=== PATIENT | female | born 1955 | race Caucasian/White ===

== ENCOUNTER 2023-01-23 09:14 | Emergency (ER) | payer MEDICARE ==
[2023-01-23] MEDS ORDERED: Diltiazem 25 MG/5 ML SDV IVPUSH ONE (09:33)
[2023-01-23] MEDS ORDERED: Sodium Chloride 0.9% 10 ML Syringe FLUSH PRN (09:33)
[2023-01-23] MEDS ORDERED: Diltiazem 125 MG in Sodium Chloride 0.9% 125 ML IV SCH (09:45)
[2023-01-23] MEDS ORDERED: Aspirin 81 MG Tab.Chew PO ONE (10:00)
[2023-01-23 10:32] LABS: PTT,PARTIAL THROMBOPLSTIN TIME 28.6 SEC (22.0-34.0)
[2023-01-23 10:46] LABS: ANION GAP 18.5 mEq/L (7-13)
== END 2023-01-23 12:56 ==
LOC: DL.ED 09:14
DX: I48.91 Unspecified atrial fibrillation (principal); I12.0 Hypertensive chronic kidney disease with stage 5 chronic kidney disease or end stage renal disease; N18.6 End stage renal disease; R94.31 Abnormal electrocardiogram [ECG] [EKG]; E78.00 Pure hypercholesterolemia, unspecified; Z99.2 Dependence on renal dialysis; Z79.82 Long term (current) use of aspirin; Z79.899 Other long term (current) drug therapy
CPT/HCPCS: 36415; 71045; 80053; 82947; 83735; 83880; 84443; 84484; 85025; 85610; 85730; 93005; 93010; 99285; A9270-GY; J3490

== ENCOUNTER 2023-03-14 07:32 | Emergency (ER) | payer MEDICARE, OTHER ==
[2023-03-14] MEDS ORDERED: Ondansetron 4 MG/2 ML SDV IVPUSH ONE (07:44)
[2023-03-14 07:45] LABS: ANION GAP 24.7 mEq/L (7-13)
[2023-03-14] MEDS: Sodium Chloride 0.9% 10 ML Syringe FLUSH PRN ×3 (07:49→08:29)
[2023-03-14] MEDS ORDERED: Calcium Chloride 10% 1 GM/10 ML Syringe IVPUSH ONE (08:17)
[2023-03-14] MEDS ORDERED: Albuterol 0.083% 2.5 MG/3 ML Neb Soln NEB ONE (08:18)
[2023-03-14] MEDS ORDERED: Sodium Bicarbonate 8.4% 50 MEQ/50 ML Syringe IVPUSH ONE (08:18)
[2023-03-14] MEDS ORDERED: 50% Dextrose in Water 50 ML Syringe IVPUSH ONE (08:45)
[2023-03-14] MEDS ORDERED: 50% Dextrose in Water 50 ML Syringe IVPUSH PRN (08:46)
[2023-03-14] MEDS ORDERED: Insulin Regular, Human 100 Units/ML 3 ML Vial IV ONE (08:46)
[2023-03-14] MEDS ORDERED: Glucagon,Human Recombinant 1 MG Vial IM PRN (08:46)
[2023-03-14] MEDS ORDERED: Pantoprazole 40 MG Vial IVPUSH ONE (08:47)
[2023-03-14] MEDS ORDERED: Sodium Zirconium Cyclosilicate 10 GM Packet PO ONE (08:47)
[2023-03-14] MEDS ORDERED: Pantoprazole 40 MG in Sodium Chloride 0.9% 100 ML IV SCH (09:00)
== END 2023-03-14 10:40 ==
LOC: DL.ED 07:32
DX: K92.2 Gastrointestinal hemorrhage, unspecified (principal); N17.9 Acute kidney failure, unspecified; E87.5 Hyperkalemia; E78.00 Pure hypercholesterolemia, unspecified; I13.0 Hypertensive heart and chronic kidney disease with heart failure and stage 1 through stage 4 chronic kidney disease, or unspecified chronic kidney disease; N18.9 Chronic kidney disease, unspecified; I50.9 Heart failure, unspecified; Z79.899 Other long term (current) drug therapy; Z79.82 Long term (current) use of aspirin
CPT/HCPCS: 36415; 70450; 71045; 80053; 81001; 82140; 82271; 82272; 83605; 83735; 84484; 85025; 85610; 85730; 86140; 87086; 87088; 87186; 93005; 93010; 96365; 96375; 96376; 99285; 99285-25; A9270-GY; C9113; J1815-GY; J2405; J3490; J7613-GY

== ENCOUNTER 2023-04-22 11:18 | Emergency (ER) | payer MEDICARE, OTHER ==
[2023-04-22] MEDS ORDERED: Sodium Chloride 0.9% 10 ML Syringe FLUSH PRN (11:24)
[2023-04-22] MEDS ORDERED: 50% Dextrose in Water 50 ML Syringe IVPUSH ONE (11:25)
[2023-04-22 11:39] LABS: BASOPHILS PERCENT AUTO 0.1 % (0.0-1.0); HEMATOCRIT 39.4 % (37.0-47.0); HEMOGLOBIN 12.6 g/dL (12.0-16.0); LYMPHOCYTES PERCENT AUTO 4.4 % (20.5-50.1); MEAN CORPUSCULAR HEMOGLOBIN 32.5 pg (27.0-34.0); MEAN CORPUSCULAR VOLUME 101.5 fL (80-100); MONOCYTES PERCENT AUTO 17.4 % (2-8); NEUTROPHILS PERCENT AUTO 78.1 % (42.2-75.2); PLATELET COUNT,PLT 182 10^3/uL (150-450); RED BLOOD CELL COUNT 3.88 10^6/uL (4.2-5.4); WHITE BLOOD CELL COUNT,WBC 7.6 10^3/uL (5.0-10.0)
[2023-04-22 12:11] LABS: A/G RATIO 1.3; ALBUMIN 4.4 g/dL (3.4-5.0); ANION GAP 32.8 mEq/L (7-13); BILIRUBIN TOTAL 0.7 mg/dL (0.2-1.0); BUN/CREATININE RATIO 8.3 (No establ ref range); CALCIUM 9.1 mg/dL (8.5-10.1); EST CRCL DRUG DOSING (CG) 4.32 mL/min; POTASSIUM,K 5.8 mmol/L (3.5-5.1); PROTEIN TOTAL,TP 7.9 g/dL (6.4-8.2)
[2023-04-22 12:12] LABS: CREATININE 8.84 mg/dL (0.55-1.02)
[2023-04-22] MEDS ORDERED: LORazepam 2 MG/ML SDV IVPUSH ONE (13:27)
[2023-04-22] MEDS ORDERED: Thiamine 100 MG in Sodium Chloride 0.9% 100 ML IV ONE (13:28)
[2023-04-22] MEDS ORDERED: Pantoprazole 40 MG Vial IVPUSH ONE (13:28)
[2023-04-22] MEDS ORDERED: Ondansetron 4 MG/2 ML SDV IV ONE (13:28)
[2023-04-22] MEDS ORDERED: Calcium Gluconate 10% 1 GM/10 ML SDV IVPUSH ONE (13:29)
[2023-04-22] MEDS ORDERED: Sodium Polystyrene Sulfonate 15 GM/60 ML Susp 60 ML Bot PO ONE (13:29)
== END 2023-04-22 14:14 ==
LOC: DL.ED 11:18
DX: S01.512A Laceration without foreign body of oral cavity, initial encounter (principal); F10.939 Alcohol use, unspecified with withdrawal, unspecified; E87.5 Hyperkalemia; E16.2 Hypoglycemia, unspecified; I13.2 Hypertensive heart and chronic kidney disease with heart failure and with stage 5 chronic kidney disease, or end stage renal disease; N18.6 End stage renal disease; I50.9 Heart failure, unspecified; E78.00 Pure hypercholesterolemia, unspecified; Z99.2 Dependence on renal dialysis; Z79.82 Long term (current) use of aspirin; Z79.899 Other long term (current) drug therapy
CPT/HCPCS: 36415; 80053; 82947; 85025; 96365; 96375; 99285-25; A9270-GY; C9113; J0612; J2060; J2405; J3411; J3490

== ENCOUNTER 2023-06-17 09:29 | Emergency (ER) | payer MEDICAID, MEDICARE ==
[2023-06-17 09:53] LABS: HEMATOCRIT 30.8 % (37.0-47.0); HEMOGLOBIN 9.7 g/dL (12.0-16.0); MEAN CORPUSCULAR HEMOGLOBIN 31.9 pg (27.0-34.0); MEAN CORPUSCULAR HGB CONC 31.5 g/dL (33.0-35.0); MEAN CORPUSCULAR VOLUME 101.3 fL (80-100); PLATELET COUNT,PLT 333 10^3/uL (150-450); RED BLOOD CELL COUNT 3.04 10^6/uL (4.2-5.4); WHITE BLOOD CELL COUNT,WBC 11.4 10^3/uL (5.0-10.0)
[2023-06-17 10:09] LABS: BASOPHILS PERCENT AUTO 0.7 % (0.0-1.0); EOSINOPHILS PERCENT AUTO 0.4 % (1.0-3.0); LYMPHOCYTES PERCENT AUTO 10.1 % (20.5-50.1); MONOCYTES PERCENT AUTO 6.4 % (2-8); NEUTROPHILS PERCENT AUTO 82.4 % (42.2-75.2)
[2023-06-17 10:13] LABS: LYMPHOCYTES PERCENT MAN 10 % (20-50); MONOCYTES PERCENT MAN 2 % (2-8); NRBC MANUAL 1 /100WBC; SEG NEUTROPHILS PERCENT MAN 88 % (42-75)
[2023-06-17] MEDS: Sodium Chloride 0.9% 10 ML Syringe FLUSH PRN (10:15)
[2023-06-17 10:16] LABS: B-TYPE NATRIURETIC PEPTIDE,BNP > 5000 pg/ml (0-100)
[2023-06-17 10:17] LABS: A/G RATIO 0.8; ALANINE AMINOTRANSFERASE,ALT 17 U/L (14-59); ALBUMIN 3.7 g/dL (3.4-5.0); ALKALINE PHOSPHATASE 128 U/L (46-116); ASPARTATE AMNIOTRANSFERASE,AST 21 U/L (15-37); BILIRUBIN TOTAL 1.2 mg/dL (0.2-1.0); BLOOD UREA NITROGEN,BUN 8 mg/dL (7-18); BUN/CREATININE RATIO 2.9 (No establ ref range); C-REACTIVE PROTEIN 11.8 mg/dL (0.0-0.9); CALCIUM 9.2 mg/dL (8.5-10.1); CARBON DIOXIDE,CO2 28 mmol/L (21-32); CHLORIDE,CL 96 mmol/L (98-107); CREATININE 2.73 mg/dL (0.55-1.02); EST CRCL DRUG DOSING (CG) 14.98 mL/min; GLUCOSE RANDOM 115 mg/dL (70-99); MAGNESIUM 1.6 mg/dL (1.8-2.4); PROTEIN TOTAL,TP 8.2 g/dL (6.4-8.2); SODIUM,NA 137 mmol/L (136-145)
[2023-06-17] MEDS: Carvedilol 25 MG Tab PO ONE (10:17)
[2023-06-17] MEDS: NIFEdipine 30 MG Tab.ER PO ONE (10:17)
[2023-06-17 10:18] LABS: ESTIMATED GFR 19 mL/min (>=60)
[2023-06-17 10:20] LABS: INR 1.1 (0.9-1.2); PROTHROMBIN TIME 11.1 SEC (9.0-12.0); PTT,PARTIAL THROMBOPLSTIN TIME 26.8 SEC (22.0-34.0)
[2023-06-17] MEDS: Furosemide 40 MG/4 ML VIAL IVPUSH ONE (10:59)
== END 2023-06-17 15:10 ==
LOC: DL.ED 09:29
DX: I13.2 Hypertensive heart and chronic kidney disease with heart failure and with stage 5 chronic kidney disease, or end stage renal disease (principal); N18.9 Chronic kidney disease, unspecified; I50.9 Heart failure, unspecified
CPT/HCPCS: 36415; 71045; 80053; 83605; 83735; 83880; 84145; 84484; 85025; 85610; 85730; 86140; 93005; 93010; 96374; 99285; 99285-25; A9270-GY; J1940; J3490; U0002

== ENCOUNTER 2023-07-22 10:09 | Emergency (ER) | payer MEDICARE ==
[2023-07-22] MEDS ORDERED: Sodium Chloride 0.9% 10 ML Syringe FLUSH PRN (10:17)
[2023-07-22 10:32] LABS: BASOPHILS PERCENT AUTO 2.5 % (0.0-1.0); EOSINOPHILS PERCENT AUTO 6.8 % (1.0-3.0); HEMATOCRIT 36.6 % (37.0-47.0); HEMOGLOBIN 12.4 g/dL (12.0-16.0); LYMPHOCYTES PERCENT AUTO 23.8 % (20.5-50.1); MEAN CORPUSCULAR HGB CONC 33.9 g/dL (33.0-35.0); MEAN CORPUSCULAR VOLUME 100.3 fL (80-100); MONOCYTES PERCENT AUTO 11.9 % (2-8); PLATELET COUNT,PLT 222 10^3/uL (150-450); RED BLOOD CELL COUNT 3.65 10^6/uL (4.2-5.4); WHITE BLOOD CELL COUNT,WBC 3.5 10^3/uL (5.0-10.0)
[2023-07-22 10:54] LABS: A/G RATIO 0.8; ALBUMIN 4.2 g/dL (3.4-5.0); ANION GAP 15.3 mEq/L (7-13); BILIRUBIN TOTAL 0.6 mg/dL (0.2-1.0); CREATININE 2.37 mg/dL (0.55-1.02); EST CRCL DRUG DOSING (CG) 17.12 mL/min; MAGNESIUM 1.7 mg/dL (1.8-2.4); PHOSPHORUS 2.1 mg/dL (2.6-4.7); POTASSIUM,K 3.3 mmol/L (3.5-5.1); PROTEIN TOTAL,TP 9.2 g/dL (6.4-8.2)
[2023-07-22 11:00] LABS: INR 0.9 (0.9-1.2); PROTHROMBIN TIME 9.6 SEC (9.0-12.0); PTT,PARTIAL THROMBOPLSTIN TIME 27.1 SEC (22.0-34.0)
== END 2023-07-22 11:36 | disposition home or self-care (01) ==
LOC: DL.ED 10:09
DX: R10.13 Epigastric pain (principal); I13.2 Hypertensive heart and chronic kidney disease with heart failure and with stage 5 chronic kidney disease, or end stage renal disease; I50.9 Heart failure, unspecified; N18.6 End stage renal disease; E78.00 Pure hypercholesterolemia, unspecified; Z79.899 Other long term (current) drug therapy; Z99.2 Dependence on renal dialysis
CPT/HCPCS: 36415; 71045; 80053; 82272; 83605; 83735; 84100; 84484; 85025; 85610; 85730; 86850; 86900; 86901; 93005; 99285

== ENCOUNTER 2023-08-28 13:49 | Emergency (ER) | payer MEDICARE ==
[2023-08-28] MEDS: 50% Dextrose in Water 50 ML Syringe IVPUSH ONE ×2 (13:47→15:47)
[2023-08-28] MEDS: Sodium Chloride 0.9% 1,000 ML IV ONE (13:55)
[2023-08-28 14:03] LABS: BASOPHILS PERCENT AUTO 0.6 % (0.0-1.0); EOSINOPHILS PERCENT AUTO 0.1 % (1.0-3.0); HEMATOCRIT 33.2 % (37.0-47.0); LYMPHOCYTES PERCENT AUTO 7.9 % (20.5-50.1); MEAN CORPUSCULAR HEMOGLOBIN 33.8 pg (27.0-34.0); MEAN CORPUSCULAR HGB CONC 33.1 g/dL (33.0-35.0); MEAN CORPUSCULAR VOLUME 102.2 fL (80-100); MONOCYTES PERCENT AUTO 8.7 % (2-8); NEUTROPHILS PERCENT AUTO 82.7 % (42.2-75.2); PLATELET COUNT,PLT 183 10^3/uL (150-450); RED BLOOD CELL COUNT 3.25 10^6/uL (4.2-5.4); WHITE BLOOD CELL COUNT,WBC 6.9 10^3/uL (5.0-10.0)
[2023-08-28 14:29] LABS: LACTIC ACID 5.9 mmol/L (0.4-2.0)
[2023-08-28 14:46] LABS: ANION GAP 37.1 mEq/L (7-13); BLOOD UREA NITROGEN,BUN 85 mg/dL (7-18); CALCIUM 9.5 mg/dL (8.5-10.1); CARBON DIOXIDE,CO2 14 mmol/L (21-32); CHLORIDE,CL 89 mmol/L (98-107); CREATININE 12.23 mg/dL (0.55-1.02); POTASSIUM,K 6.1 mmol/L (3.5-5.1); PROTEIN TOTAL,TP 8.4 g/dL (6.4-8.2); SODIUM,NA 134 mmol/L (136-145)
[2023-08-28 14:47] LABS: A/G RATIO 0.9; ALANINE AMINOTRANSFERASE,ALT 33 U/L (14-59); ALKALINE PHOSPHATASE 117 U/L (46-116); ASPARTATE AMNIOTRANSFERASE,AST 46 U/L (15-37); BILIRUBIN TOTAL 0.4 mg/dL (0.2-1.0); C-REACTIVE PROTEIN 3.32 ng/dL (<=0.30); ETHANOL BLOOD MEDICAL 65 mg/dL (0); MAGNESIUM 2.2 mg/dL (1.8-2.4); TSH ULTRASENSITIVE 8.66 uIU/mL (0.36-3.74)
[2023-08-28] MEDS: Metoprolol Tartrate 5 MG/5 ML SDV IVPUSH ONE ×3 (14:48→17:06)
[2023-08-28 15:06] LABS: ESTIMATED GFR 3 mL/min (>=60); GLUCOSE RANDOM 30 mg/dL (70-99)
[2023-08-28 15:07] LABS: PHOSPHORUS 12.8 mg/dL (2.6-4.7)
[2023-08-28] MEDS ORDERED: 50% Dextrose in Water 50 ML Syringe IVPUSH PRN (15:15)
[2023-08-28] MEDS ORDERED: Glucagon,Human Recombinant 1 MG Vial IM PRN (15:15)
[2023-08-28] MEDS: 50% Dextrose in Water 50 ML Syringe ONE (15:38)
[2023-08-28] MEDS: Calcium Chloride 10% 1 GM/10 ML Syringe IVPUSH ONE (15:40)
[2023-08-28] MEDS: Sodium Bicarbonate 8.4% 50 MEQ/50 ML Syringe IVPUSH ONE (15:45)
[2023-08-28 15:49] LABS: O2 DELIVERY DEVICE NASAL CANNULA
[2023-08-28 15:50] LABS: BASE EXCESS ARTERIAL -17 mmol/L ((-2)-(+3)); BICARBONATE,ARTERIAL 9.7 mmol/L (22-26); O2 SATURATION ARTERIAL 97 % (95-100); PCO2 ARTERIAL 26 mmHg (35-45); PO2 ARTERIAL 112 mmHg (70-100)
[2023-08-28 15:52] LABS: ALLEN TEST POSITIVE
[2023-08-28] MEDS: Insulin Regular, Human 100 Units/ML 3 ML Vial IV ONE (15:55)
[2023-08-28] MEDS: Dextrose 10% in Water 500 ML IV ONE (16:24)
[2023-08-28] MEDS: Sodium Chloride 0.9% 10 ML Syringe FLUSH PRN (16:24)
[2023-08-28 17:32] LABS: AMPHETAMINES,URINE NEGATIVE (NEGATIVE); BARBITURATES,URINE NEGATIVE (NEGATIVE); BENZODIAZEPINE,URINE NEGATIVE (NEGATIVE); MDMA (ECSTASY), URINE NEGATIVE (NEGATIVE); METHADONE,URINE NEGATIVE (NEGATIVE); METHAMPHETAMINES,URINE NEGATIVE (NEGATIVE); OPIATES,URINE NEGATIVE (NEGATIVE); OXYCODONE,URINE NEGATIVE (NEGATIVE); PHENCYCLIDINE,URINE NEGATIVE (NEGATIVE); TCA,URINE NEGATIVE (NEGATIVE)
[2023-08-28 17:33] LABS: APPEARANCE,URINE SLIGHTLY CLOUDY (CLEAR); BILIRUBIN,URINE NEGATIVE (NEGATIVE); COLOR,URINE YELLOW (YELLOW); GLUCOSE,URINE NEGATIVE (NEGATIVE); KETONES,URINE 15 (NEGATIVE); LEUKOCYTE ESTERASE,URINE SMALL (NEGATIVE); NITRITE,URINE NEGATIVE (NEGATIVE); OCCULT BLOOD,URINE MODERATE (NEGATIVE); PROTEIN,URINE >=300 (NEGATIVE); UROBILINOGEN,URINE 0.2 mg/dL (0.2-1.0)
[2023-08-28 17:45] LABS: BACTERIA,URINE MANY /HPF (0-FEW/HPF); EPITHELIAL CELLS,URINE MODERATE /HPF (NOT SEEN); WBC,URINE >100 /HPF (0-5/HPF)
[2023-08-28] MEDS: Pantoprazole 40 MG Vial IVPUSH ONE (18:00)
[2023-08-28] MEDS: Pantoprazole 40 MG in Sodium Chloride 0.9% 100 ML IV SCH (18:00)
[2023-08-28] MEDS: Ondansetron 4 MG/2 ML SDV IVPUSH ONE (18:58)
== END 2023-08-28 19:05 ==
LOC: DL.ED 13:49
DX: K92.2 Gastrointestinal hemorrhage, unspecified (principal); F10.20 Alcohol dependence, uncomplicated; E87.5 Hyperkalemia; I13.2 Hypertensive heart and chronic kidney disease with heart failure and with stage 5 chronic kidney disease, or end stage renal disease; N18.6 End stage renal disease; I50.9 Heart failure, unspecified; E78.00 Pure hypercholesterolemia, unspecified; Z99.2 Dependence on renal dialysis; Z79.899 Other long term (current) drug therapy
CPT/HCPCS: 36415; 36600; 70450; 80053; 80305; 80307; 81001; 82271; 82550; 82803; 82947; 83605; 83735; 84100; 84443; 85025; 86140; 87086; 87088; 87186; 93005; 96361; 96374; 96375; 96376; 99285; C9113; J1815; J2405; J3490; J7030; 93010

== ENCOUNTER 2023-11-08 05:34 | Emergency (ER) | payer MEDICARE | END 2023-11-08 05:57 | disposition left against medical advice (07) | LOC: DL.ED 05:34 | DX: K80.20 Calculus of gallbladder without cholecystitis without obstruction (principal); Z53.29 Procedure and treatment not carried out because of patient's decision for other reasons; I13.0 Hypertensive heart and chronic kidney disease with heart failure and stage 1 through stage 4 chronic kidney disease, or unspecified chronic kidney disease; I50.9 Heart failure, unspecified; N18.9 Chronic kidney disease, unspecified; Z90.710 Acquired absence of both cervix and uterus; Z79.899 Other long term (current) drug therapy | CPT/HCPCS: 99284 ==

== ENCOUNTER 2023-11-08 10:12 | Emergency (ER) | payer MEDICARE ==
[2023-11-08] MEDS ORDERED: Sodium Chloride 0.9% 10 ML Syringe FLUSH PRN (10:20)
[2023-11-08] MEDS ORDERED: Ondansetron 4 MG/2 ML SDV IVPUSH ONE (10:21)
[2023-11-08 10:47] LABS: BASOPHILS PERCENT AUTO 0.4 % (0.0-1.0); EOSINOPHILS PERCENT AUTO 1.9 % (1.0-3.0); HEMOGLOBIN 11.8 g/dL (12.0-16.0); LYMPHOCYTES PERCENT AUTO 9.3 % (20.5-50.1); MEAN CORPUSCULAR HGB CONC 32.8 g/dL (33.0-35.0); MEAN CORPUSCULAR VOLUME 103.7 fL (80-100); MONOCYTES PERCENT AUTO 17.7 % (2-8); NEUTROPHILS PERCENT AUTO 70.7 % (42.2-75.2); PLATELET COUNT,PLT 149 10^3/uL (150-450); RED BLOOD CELL COUNT 3.47 10^6/uL (4.2-5.4); WHITE BLOOD CELL COUNT,WBC 9.7 10^3/uL (5.0-10.0)
[2023-11-08] MEDS ORDERED: Ondansetron 4 MG Tab.DIS PO ONE ×2 (10:47)
[2023-11-08 11:08] LABS: ANION GAP 12.9 mEq/L (7-13); BLOOD UREA NITROGEN,BUN 8 mg/dL (7-18); CALCIUM 8.4 mg/dL (8.5-10.1); CARBON DIOXIDE,CO2 27 mmol/L (21-32); CHLORIDE,CL 94 mmol/L (98-107); CREATININE 1.71 mg/dL (0.55-1.02); EST CRCL DRUG DOSING (CG) 24.64 mL/min; GLUCOSE RANDOM 97 mg/dL (70-99); POTASSIUM,K 2.9 mmol/L (3.5-5.1); SODIUM,NA 131 mmol/L (136-145)
[2023-11-08 11:09] LABS: ESTIMATED GFR 32 mL/min (>=60); LIPASE > 250 U/L (16-77)
[2023-11-08 11:27] LABS: A/G RATIO 0.7; ALBUMIN 3.5 g/dL (3.4-5.0); BILIRUBIN DIRECT 0.7 mg/dL (0.0-0.2); BILIRUBIN INDIRECT 0.8; BILIRUBIN TOTAL 1.5 mg/dL (0.2-1.0); PROTEIN TOTAL,TP 8.2 g/dL (6.4-8.2)
[2023-11-08] MEDS ORDERED: Potassium Chloride 10 MEQ Tab.ER PO ONE (11:52)
== END 2023-11-08 14:23 | disposition home or self-care (01) ==
LOC: DL.ED 10:12
DX: K85.90 Acute pancreatitis without necrosis or infection, unspecified (principal); I13.0 Hypertensive heart and chronic kidney disease with heart failure and stage 1 through stage 4 chronic kidney disease, or unspecified chronic kidney disease; I50.9 Heart failure, unspecified; N18.9 Chronic kidney disease, unspecified; E78.00 Pure hypercholesterolemia, unspecified; Z90.710 Acquired absence of both cervix and uterus; Z79.899 Other long term (current) drug therapy
CPT/HCPCS: 36415; 76705; 80048; 80076; 83690; 85025; 99284; A9270

== ENCOUNTER 2023-12-18 15:05 | Emergency (ER) | payer MEDICARE ==
[2023-12-18 15:41] LABS: BASOPHILS PERCENT AUTO 0.9 % (0.0-1.0); EOSINOPHILS PERCENT AUTO 0.2 % (1.0-3.0); HEMATOCRIT 30.5 % (37.0-47.0); HEMOGLOBIN 9.9 g/dL (12.0-16.0); LYMPHOCYTES PERCENT AUTO 8.6 % (20.5-50.1); MEAN CORPUSCULAR HEMOGLOBIN 32.1 pg (27.0-34.0); MEAN CORPUSCULAR HGB CONC 32.5 g/dL (33.0-35.0); MONOCYTES PERCENT AUTO 10.2 % (2-8); NEUTROPHILS PERCENT AUTO 80.1 % (42.2-75.2); PLATELET COUNT,PLT 210 10^3/uL (150-450); RED BLOOD CELL COUNT 3.08 10^6/uL (4.2-5.4); WHITE BLOOD CELL COUNT,WBC 12.5 10^3/uL (5.0-10.0)
[2023-12-18 15:58] LABS: A/G RATIO 0.71; ANION GAP 24.8 mEq/L (7-13); BILIRUBIN TOTAL 1.1 mg/dL (0.2-1.0); BUN/CREATININE RATIO 6.7 (No establ ref range); CALCIUM 9.5 mg/dL (8.5-10.1); CREATININE 9.68 mg/dL (0.55-1.02); EST CRCL DRUG DOSING (CG) 4.46 mL/min; PHOSPHORUS 7.9 mg/dL (2.6-4.7); POTASSIUM,K 5.8 mmol/L (3.5-5.1); PROTEIN TOTAL,TP 7.2 g/dL (6.4-8.2)
[2023-12-18] MEDS ORDERED: Carvedilol 25 MG Tab PO ONE (20:49)
[2023-12-18] MEDS ORDERED: Pantoprazole 40 MG Tab.CR PO ONE (20:51)
[2023-12-18] MEDS ORDERED: Sucralfate 1 GM Tab PO ONE (20:51)
[2023-12-18] MEDS ORDERED: Ondansetron 4 MG Tab.DIS PO SCH (21:00)
[2023-12-18] MEDS ORDERED: NIFEdipine 30 MG Tab.ER PO SCH (21:00)
[2023-12-18] MEDS ORDERED: atorvaSTATin 20 MG Tab PO SCH (21:00)
[2023-12-19] MEDS ORDERED: Sodium Chloride 0.9% 500 ML IV SCH (04:15)
[2023-12-19 07:03] LABS: HEMATOCRIT 26.3 % (37.0-47.0); HEMOGLOBIN 8.6 g/dL (12.0-16.0); MEAN CORPUSCULAR HEMOGLOBIN 32.5 pg (27.0-34.0); MEAN CORPUSCULAR HGB CONC 32.7 g/dL (33.0-35.0); MEAN CORPUSCULAR VOLUME 99.2 fL (80-100); PLATELET COUNT,PLT 152 10^3/uL (150-450); RED BLOOD CELL COUNT 2.65 10^6/uL (4.2-5.4); WHITE BLOOD CELL COUNT,WBC 8.7 10^3/uL (5.0-10.0)
[2023-12-19 07:08] LABS: ANION GAP 23.1 mEq/L (7-13); CALCIUM 8.5 mg/dL (8.5-10.1); CREATININE 9.75 mg/dL (0.55-1.02); EST CRCL DRUG DOSING (CG) 4.43 mL/min
[2023-12-19 07:13] LABS: BASOPHILS PERCENT AUTO 0.7 % (0.0-1.0); LYMPHOCYTES PERCENT AUTO 10.2 % (20.5-50.1); MONOCYTES PERCENT AUTO 11.5 % (2-8); NEUTROPHILS PERCENT AUTO 74.6 % (42.2-75.2)
[2023-12-19 07:19] LABS: POTASSIUM,K 7.1 mmol/L (3.5-5.1)
[2023-12-19] MEDS ORDERED: Calcium Gluconate 10% 1 GM/10 ML SDV IVPUSH ONE ×2 (07:45→07:54)
[2023-12-19] MEDS ORDERED: Albuterol 0.083% 2.5 MG/3 ML Neb Soln NEB ONE (07:46)
[2023-12-19] MEDS ORDERED: Insulin Regular, Human 100 Units/ML 3 ML Vial IV ONE (07:48)
[2023-12-19] MEDS ORDERED: 50% Dextrose in Water 50 ML Syringe IVPUSH ONE (07:49)
[2023-12-19] MEDS ORDERED: Sodium Polystyrene Sulfonate 15 GM/60 ML Susp 60 ML Bot PO ONE (08:25)
[2023-12-19] MEDS ORDERED: Norepinephrine Bit/D5W Premix 250 ML ONE (08:39)
[2023-12-19] MEDS ORDERED: Norepinephrine Bit/D5W Premix 250 ML IV SCH (08:45)
[2023-12-19 09:41] LABS: EOSINOPHILS PERCENT MAN 3 % (1-3); LYMPHOCYTES PERCENT MAN 10 % (20-50); MONOCYTES PERCENT MAN 8 % (2-8); NRBC MANUAL 2 /100WBC; SEG NEUTROPHILS PERCENT MAN 79 % (42-75)
== END 2023-12-19 09:21 ==
LOC: DL.ED 15:05
DX: N17.9 Acute kidney failure, unspecified (principal); E87.5 Hyperkalemia; I13.0 Hypertensive heart and chronic kidney disease with heart failure and stage 1 through stage 4 chronic kidney disease, or unspecified chronic kidney disease; I50.9 Heart failure, unspecified; N18.9 Chronic kidney disease, unspecified; E78.00 Pure hypercholesterolemia, unspecified; Z90.710 Acquired absence of both cervix and uterus; Z99.2 Dependence on renal dialysis; Z79.899 Other long term (current) drug therapy
CPT/HCPCS: 36415; 80048; 80053; 82947; 83735; 84100; 84132; 85025; 93005; 93010; 96361; 96365; 96375; 99284; 99285-25; A9270-GY; J0612; J1815-GY; J3490; J7040; J7613-GY